=== PATIENT | male | born 1980 | race Caucasian/White ===

== ENCOUNTER 2017-02-22 18:33 | Emergency (ER) | payer SELFPAY ==
[~2017-02-22] VITALS: Ht 188 cm; Wt 78.0 kg
[2017-02-22 18:42] VITALS: BP 132/72; PULSE 54; RESP 16; TEMP 98.3; O2SAT 99
[2017-02-22] MEDS ORDERED: PROPARACAINE HCL 0.5% OPHT SOLN 15 ML BTL RIGHT EYE ONE (19:45)
[2017-02-22] MEDS ORDERED: FLUORESCEIN SOD 1 MG STRIP RIGHT EYE ONE (19:45)
--- NOTE | 2017-02-22 19:52 | PD ---
HPI Chief Complaint: Foreign Body Time Seen by Provider: 19:32 Travel History International Travel<30 days: No Contact w/Intl Traveler<30days: No Traveled to known affect area: No History of Present Illness HPI 36-year-old male here for evaluation of right eye foreign body. The patient reports that around 4:30 PM today while grinding metal he believes a piece of metal flew into his right eye. He continues to have a foreign body sensation, however has not actually visualize a foreign body in his eye. He has some mild blurred vision and mild discomfort to the eye. Left eye is normal. He does not wear contacts. Last tetanus was within the last 5 years. PFS Past Medical History Medical History: Denies Significant Hx Diminished Hearing: No Immunizations Current: Yes Tetanus Vaccination: < 5 Years Influenza Vaccination: No Past Surgical History Surgical History: No Previous Surgery Social History Alcohol Use: No Tobacco Use: No Substance Use: No Allergies-Medications (Allergen,Severity, Reaction): Coded Allergies: Sulfa (Sulfonamide Antibiotics) (Verified Allergy, Severe, 02/22/17) Reported Meds & Prescriptions Reported Meds & Active Scripts Active No Active Prescriptions or Reported Medications Physical Exam Narrative GENERAL: Well-developed, well-nourished, comfortable, no apparent distress. SKIN: Focused skin assessment warm/dry. HEAD: Atraumatic. Normocephalic. EYES: Pupils equal, round, 3 mm, reactive to light. EOMI. Mild clear tearing in right eye. Bilateral corneas are clear without obvious foreign body. No rust ring. Right upper and lower eyelids were everted and no foreign body was noted. Forcing staining shows a very small circular/central corneal abrasion to the right eye. Negative Shanna sign. Visual acuity shows 20/20 in each eye and with both eyes at once. NEUROLOGICAL: Awake and alert. No obvious cranial nerve deficits. Motor grossly within normal limits. Normal speech. PSYCHIATRIC: Appropriate mood and affect; insight and judgment normal. Data Data Last Documented VS Vital Signs Date Time Temp Pulse Resp B/P (MAP) Pulse Ox O2 Delivery O2 Flow Rate FiO2 02/22/17 18:42 98.3 54 16 132/72 (92) 99 Orders Orders Proparacaine 0.5% Opth Soln (Alcaine 0.5 (02/22/17 19:45) Fluorescein Strip ([id number]-M-Mxcwwd A.T.) (02/22/17 19:45) Polymyxin/Trimethop Opht Soln (Polytrim (02/22/17 20:00) Ct Orbits W/O Iv Contrast (02/22/17 ) MDM Medical Decision Making Medical Screen Exam Complete: Yes Emergency Medical Condition: Yes Differential Diagnosis Corneal abrasion, eye foreign body Narrative Course The patient has a very small circular/central/superficial appearing corneal abrasion to the mid right eye. There is negative Shanna sign. There are no obvious foreign bodies. No rust ring. Initial plan was to perform CT orbits to make sure that there is no foreign body in the posterior chamber. Patient was at first amenable to this plan, however after speaking with his was in the medical field, prefers to be discharged home without this exam and will follow up with an firer helper. I strongly advised that the patient have this exam performed. The patient understands the risks of refusing CT orbits. He was advised on when to return to the emergency department. He verbalizes understanding and agreement with plan. Diagnosis Primary Impression: Corneal abrasion, right Qualified Codes: S05.01XA - Injury of conjunctiva and corneal abrasion without foreign body, right eye, initial encounter Referrals: Shannon Castro MD 1 day Additional Instructions: Follow-up with firer helper Dr. Castro or an firer helper of your choice tomorrow. Return to the emergency department for worsening symptoms or any other concerns. Scripts Polymyxin B-Trimethoprim Opth Drops (Polytrim Opth Drops) 10,000-0.1 Unit/Ml-% Soln 1 DROP RIGHT EYE Q6HR for Mgmt Bacterial Infection, #1 BOTTLE 0 Refills Prov: Fortunato Harding MD 02/22/17 Disposition: 01 DISCHARGE HOME Condition: Stable Fortunato Harding MD Feb 22, 2017 19:52
[2017-02-22] MEDS ORDERED: POLYMYXIN/TRIMETHOPRIM OPHT SOLN 10 ML BTL RIGHT EYE ONE (20:00)
[2017-02-22] MEDS ORDERED: POLY10O RIGHT EYE (20:06)
== END 2017-02-22 20:12 | disposition home or self-care (01) ==
LOC: PHEFT 18:33
DX: S05.01XA Injury of conjunctiva and corneal abrasion without foreign body, right eye, initial encounter (principal); X58.XXXA Exposure to other specified factors, initial encounter; Y93.89 Activity, other specified